=== PATIENT | male | born 1970 | race Caucasian/White ===

== ENCOUNTER → 2018-03-08 | Day surgery (SDC) | payer BC ==
[2018-03-06 08:57] LABS: BASOPHILS % 0.8 % (0.0-1.0); EOSINOPHILS # (AUTO) 0.3 (0.0-0.4); EOSINOPHILS % 6.8 % (0.0-6.0); HEMATOCRIT 40.4 % (38.2-49.6); HEMOGLOBIN 13.8 g/dL (14.0-18.0); LYMPHOCYTES # (AUTO) 2.2 (1.0-3.2); LYMPHOCYTES % 45.1 % (18.0-39.1); MEAN CORPUSCULAR HEMOGLOBIN 33.4 pg (28-32); MEAN CORPUSCULAR HGB CONC 34.2 g/dL (31-35); MEAN CORPUSCULAR VOLUME 97.8 fL (81-99); MONOCYTES # (AUTO) 0.4 (0.2-0.8); MONOCYTES % 7.6 % (4.4-11.3); NEUTROPHILS % 39.5 % (38.7-80.0); PLATELET COUNT 203 x10e3/uL (140-360); RED BLOOD COUNT 4.13 x10e6/uL (4.3-5.7); RED CELL DISTRIBUTION WIDTH 12.3 % (11.7-14.4)
[2018-03-06 09:20] LABS: ANION GAP 11.1 mmol/L (8-16); BLOOD UREA NITROGEN 15 mg/dL (7-26); BUN/CREATININE RATIO 14 (6-25); CALCIUM 9.7 mg/dL (8.4-10.2); CARBON DIOXIDE 29 mmol/L (22-29); CHLORIDE 103 mmol/L (98-107); CREATININE, SERUM 1.11 mg/dL (0.72-1.25); EST GLOMERULAR FILTRATION RATE > 60 ML/MIN (60-); GLUCOSE 99 mg/dL (74-118); POTASSIUM 4.1 mmol/L (3.5-5.1); SODIUM 139 mmol/L (136-145)
[~2018-03-08] MED LIST: ADVAIR INH; FENTANYL CITRATE/PF 100MCG/2 ML INJ ONE; FLONASE; LIDOCAINE HCL 2% LOCAL INJ 5 ML SDV VIAL INJ ONE; MIDAZOLAM HCL 2 MG/2 ML VIAL ONE; PROPOFOL IV EMULSION 10 MG/ML 20 ML VIAL ONE; TRUVADA 200 MG1 EACH PO
--- OUTSIDE RECORDS SUMMARY | 2018-03-08 08:52 | XMS REPORT ---
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 Problem Name Problem Code Onset Date Status Entry Date Provider Comment Standard Description Annotate Std exposure V01.6 Active Jo-Ann Pierre RN Contact with or exposure to venereal diseases Std screening V74.5 Active Jo-Ann Pierre RN Screening examination for venereal disease Medication List Medication Instructions Start Date Stop Date Generic Name NDC Status Provider Patient Instruction ADVAIR ADVAIR Active Jo-Ann Pierre RN Active FLONASE FLONASE Active Jo-Ann Pierre RN Active TRUVADA TRUVADA Active Jo-Ann Pierre RN Active Vital Signs Date Name Value Unit Range Description blood pressure, diastolic 84 mm[Hg] BP baird blood pressure, systolic 134 mm[Hg] BP sys height E&M 70 [in_us] Bdy height pulse rate E&M 60 /min Heart rate respiratory rate E&M 16 /min Resp rate temperature E&M 96.7 [degF] Body temperature weight E&M 179.13 [lb_av] Weight Measured blood pressure, diastolic 93 mm[Hg] BP baird blood pressure, systolic 148 mm[Hg] BP sys height E&M 70 [in_us] Bdy height pulse rate E&M 70 /min Heart rate respiratory rate E&M 16 /min Resp rate temperature E&M 97.7 [degF] Body temperature weight E&M 183.38 [lb_av] Weight Measured Diagnostic Results Date Name Value Unit Range Description Lab Report: Chlamydia/GC Amplification, Ct/GC CHANEL, Rectal, Ct/GC CHANEL, Ph ... - Lab chlamydia DNA probe Negative Negative Lab Report: Chlamydia/GC Amplification, Ct/GC CHANEL, Rectal, Ct/GC CHANEL, Ph ... - Microbiology Neisseria gonorrhoeae DNA probe Negative Negative Lab Report: Chlamydia/GC Amplification, Ct/GC CHANEL, Rectal, Ct/GC CHANEL, Ph ... - Basic GC Rectum Negative Negative Nurse Visit: Nurse Visit - [facility], Bicillin tx, exposure - Chemistry HIV rapid test results negative Lab Report: Chlamydia/GC Amplification, Ct/GC CHANEL, Rectal, Ct/GC CHANEL, Ph ... - Microbiology Neisseria gonorrhoeae, throat culture Negative Negative Encounters Date Encounter Provider Code Facility 10:30:10 FLOAT REMOVER Est Patient Nurse - Only Visit - [id number] Jo-Ann Pierre RN CPT-76666 [facility] [place] [facility] 14:49:49 FLOAT REMOVER Est Patient Nurse - Only Visit - [id number] Jo-Ann Pierre RN CPT-32124 [facility] [place] [facility] Procedures Code Procedure Name Date Entry Date Standard Description CPT-J0580 Bicillin LA 2.4 million units 10:30:10 FLOAT REMOVER CPT-J0561 Injection, penicillin g benzathine, 1.2 mu 10:30:10 FLOAT REMOVER CPT-05218 [place] Determine HIV-1/2 Ag/Ab Combo - In House 10:30:08 FLOAT REMOVER CPT-J0580 Bicillin LA 2.4 million units 14:49:52 FLOAT REMOVER CPT-J0561 Injection, penicillin g benzathine, 1.2 mu 14:49:51 FLOAT REMOVER
[2018-03-08 11:30] VITALS: BP 116/78
== END | disposition home or self-care (01) ==
LOC: OR 08:49
PROVIDERS: ATTEND Surgery
DX: K63.5 Polyp of colon (principal); J45.909 Unspecified asthma, uncomplicated; R00.1 Bradycardia, unspecified; Z01.810 Encounter for preprocedural cardiovascular examination; Z01.812 Encounter for preprocedural laboratory examination
CPT/HCPCS: 36415; 45378; 80048; 85025; 93005; J2001; J2250; J2704